=== PATIENT | male | born 1980 | race Caucasian/White ===

== ENCOUNTER 2016-11-16 08:33 | Emergency (ER) | payer BC ==
[2016-11-16 08:47] VITALS: RESP 18; TEMP 98.1; O2SAT 97
[2016-11-16 08:55] LABS: COLOR YELLOW; LEUKOCYTE ESTERASE,URINE NEGATIVE (NEGATIVE); NITRITE,URINE NEGATIVE (NEGATIVE)
--- NOTE | 2016-11-16 08:56 | EDPHY ---
H & P Stated Complaint: LEFT FLANK PAIN FOR 1.5 WEEKS, POSSIBLE KIDNEY STONE Time Seen by Provider: 11/16/16 08:48 HPI/ROS: Chief Complaint: Left back pain HPI: 35-year-old male presenting with left-sided back pain for about a week. Patient states this morning when he got up is worse, about a 7 8/10. Does not radiate. He has mild nausea but no vomiting. States that hurts to bend or twist. He took 1 Advil this morning without significant relief. Did take a Percocet yesterday that he had left over from the past no significant relief. No urinary symptoms. No fevers or chills. Feels better when he remains still, hurts more when he moves around. It is not radiating. Does have a history of a passed kidney stone in the past but this feels different as that had radiated to the front. ROS: 10 point Review of Systems is negative except as noted in the HPI. PMH: None Medications: Probiotic Allergies: No known drug allergies Social History: No smoking, occasional alcohol, occasional marijuana Family History: non-contributory Physical Exam: Gen: Awake, Alert, No Distress HEENT: Nose: no rhinorrhea Eyes: PERRLA, EOMI Mouth: Moist mucosa Neck: Supple, no JVD Chest: nontender, lungs clear to auscultation Heart: S1, S2 normal, no murmur Abd: Soft, non-tender, no guarding Back: No midline tenderness, no CVA tenderness, he does have reproducible tenderness in the left lower paraspinal area reproducing his presenting complaint. He has reduced flexion and extension secondary to pain in his lumbar spine. No right-sided tenderness Ext: no edema, non-tender Skin: no rash Neuro: CN II-XII intact, Sensation grossly intact, Strength 5/5 in bilateral upper and lower extremities - Personal History Tetanus Vaccine Date: 2007 - Medical/Surgical History Other PMH: anxiety, KIDNEY STONE. left ankle surgery for cyst removal and tarsal tunnel repair - Social History Smoking Status: Current every day smoker Constitutional: Initial Vital Signs Temperature (C) 36.7 C 11/16/16 08:40 Heart Rate 83 11/16/16 08:40 Respiratory Rate 18 11/16/16 08:40 Blood Pressure 133/87 H 11/16/16 08:40 O2 Sat (%) 97 11/16/16 08:40 O2 Delivery Mode Room Air Allergies/Adverse Reactions: hydrocodone bitartrate [From Vicodin] Allergy (Verified 11/02/15 10:42) NAUSEA Home Medications: Medication Instructions Recorded CYCLOBENZAPRINE HCL [Flexeril] 5 mg PO TIDPRN PRN #15 tab 11/02/15 oxyCODONE/APAP 5/325 [Percocet 1 tab PO Q4-6PRN PRN #15 tab 11/02/15 5/325 (RX)] Cyclobenzaprine [Flexeril] 10 mg PO TIDPRN PRN #12 tab 03/06/16 oxyCODONE/APAP 5/325 [Percocet 1 - 2 tab PO Q4-6PRN PRN #15 tab 03/06/16 5/325] Medical Decision Making ED Course/Re-evaluation: Urinalysis is negative for hematuria or signs of infection. Urine is normal. Symptoms consistent more with musculoskeletal pain rather than kidney stone. Will continue anti-inflammatories and acetaminophen. Will give him stretching exercises. Instructions to follow up with primary care physician. - Data Points Laboratory Results: 11/16/16 08:40 Urine Color YELLOW Urine Appearance CLEAR Urine pH 7.0 (5.0-7.5) Ur Specific [place] <= 1.005 (1.002-1.030) Urine Protein NEGATIVE (NEGATIVE) Urine Ketones NEGATIVE (NEGATIVE) Urine Blood NEGATIVE (NEGATIVE) Urine Nitrate NEGATIVE (NEGATIVE) Urine Bilirubin NEGATIVE (NEGATIVE) Urine Urobilinogen 0.2 EU EU (0.2-1.0) Ur Leukocyte Esterase NEGATIVE (NEGATIVE) Urine Glucose NEGATIVE (NEGATIVE) Departure - Departure Disposition: Home, Routine, Self-Care Clinical Impression: Lumbar strain Condition: Good Instructions: Low Back Strain (ED), Lower Back Exercises (ED) Additional Instructions: Take 600 mg of ibuprofen 3 times a day. You may also take acetaminophen every 4 hours as needed for pain. It is important to remain active and do not get excessive bed rest. Perform the back stretching exercises you have been given in this discharge information. Follow up with primary care physician in 3-4 days for re-evaluation. Referrals: Manan Bradley MD [Primary Care Provider] - As per Instructions
[2016-11-16 09:09] VITALS: BP 154/100; PULSE 76
== END 2016-11-16 09:08 | disposition home or self-care (01) ==
LOC: CED 08:33
DX: S39.012A Strain of muscle, fascia and tendon of lower back, initial encounter (principal); F17.200 Nicotine dependence, unspecified, uncomplicated; X58.XXXA Exposure to other specified factors, initial encounter
CPT/HCPCS: 81003-PO

== ENCOUNTER 2017-09-01 19:56 | Emergency (ER) | payer BC ==
--- NOTE | 2017-09-01 20:06 | EDPHY ---
H & P Time Seen by Provider: 09/01/17 19:59 HPI/ROS: 36-year-old male presents complaining of fall down stairs and states he twisted his right ankle and feels a grinding pain in his knee primarily in his lateral knee. This happened approximately 1 hr ago. Upon arrival he was initially quite [place] with bearing weight on his right lower extremity however he gradually began to bear more weight and was able to walk to the bathroom easily. Review of systems As per HPI General no fever no chills no weakness HEENT no eye pain no eye discharge. No eye redness, no sore throat Respiratory no cough, no shortness of breath Cardiac no chest pain, no peripheral edema GI no abdominal pain, no diarrhea, no constipation, no nausea, no vomiting no flank pain, no hematuria, no dysuria Musculoskeletal no myalgias, positive joint pain Heme no easy bruising, no easy bleeding Endo no polyuria, no polydipsia Skin no rashes, no pruritus Neuro no syncope, no dizziness, no headaches Psych is no suicidal ideation, no homicidal ideation Past Medical/Surgical History: Prior back injuries Social History: Occasional alcohol, occasional marijuana Smoking Status: Current every day smoker Physical Exam: 36-year-old male Alert and oriented in no acute distress nontoxic appearance, afebrile Atraumatic normocephalic Neck no JVD Lungs clear to auscultation, no respiratory distress Heart regular rate and rhythm Extremities no cyanosis clubbing edema Right lower extremity No swelling, no ecchymosis no discoloration, good distal pulses good popliteal pulse Normal capillary refill Constitutional: Initial Vital Signs Temperature (C) 36.6 C 09/01/17 20:03 Heart Rate 110 H 09/01/17 20:03 Respiratory Rate 20 09/01/17 20:03 Blood Pressure 146/92 H 09/01/17 20:03 O2 Sat (%) 95 09/01/17 20:03 O2 Delivery Mode Room Air Allergies/Adverse Reactions: hydrocodone bitartrate [From Vicodin] Allergy (Verified 11/02/15 10:42) NAUSEA Home Medications: Medication Instructions Recorded NK [No Known Home Meds] 09/01/17 Medical Decision Making ED Course/Re-evaluation: Patient seen and evaluated for right lower extremity pain after a fall. X-ray ankle Negative for fracture negative for soft tissue swelling X-ray knee Negative fracture negative soft tissue swelling negative effusion Impression Mild right ankle sprain, mild knee sprain Plan Rest ice elevation Maximiliano wrap ankle Follow-up PCP Ibuprofen or acetaminophen as needed for pain. Differential Diagnosis: Differential diagnosis considered but not limited to an and no particular order: Ankle sprain, ankle fracture, ankle dislocation, knee sprain, tib-fib fracture, patella fracture, internal knee derangement Departure - Departure Disposition: Home, Routine, Self-Care Clinical Impression: Right knee sprain, Right ankle sprain Condition: Good Instructions: Ankle Sprain (ED), Knee Sprain (ED) Additional Instructions: Rest, ice, elevation You may take ibuprofen or acetaminophen as needed for pain. Follow-up with the primary care physician if you continue to have pain. Referrals: Manan Bradley MD [Primary Care Provider] - As per Instructions
[2017-09-01 21:11] VITALS: BP 131/86
== END 2017-09-01 21:10 | disposition home or self-care (01) ==
LOC: CED 19:56
DX: S93.401A Sprain of unspecified ligament of right ankle, initial encounter (principal); S83.91XA Sprain of unspecified site of right knee, initial encounter; F17.200 Nicotine dependence, unspecified, uncomplicated; W10.8XXA Fall (on) (from) other stairs and steps, initial encounter
CPT/HCPCS: 73562-PO; 73610-PO